=== PATIENT | female | born 1955 | race Caucasian/White ===

== ENCOUNTER 2017-06-10 20:49 | Emergency (ER) | payer BC, OTHER ==
[~2017-06-10] VITALS: Ht 162.6 cm; Wt 94.5 kg
[~2017-06-10 20:49] MED LIST: Z.0.NO CURRENT MEDS
[2017-06-10 21:20] VITALS: BP 161/75; PULSE 73; RESP 18; TEMP 97.8; O2SAT 100
--- NOTE | 2017-06-10 21:37 | PD ---
HPI Chief Complaint: Left knee injury Time Seen by Provider: 21:33 Travel History International Travel<30 days: No Contact w/Intl Traveler<30days: No History of Present Illness HPI 61-year-old female patient with history of left knee meniscus tear diagnosed 2 weeks ago via MRI with Dr. Elizabeth, presents to the ER today because she states that she was walking at the [employer] today and felt and heard a sudden pop in her left knee, followed by severe pain which she states is a 10 out of 10 currently, hurts with any movement. She denies any other issues or injuries. She is unable to put weight on the left knee due to severe pain. Modifying Factors: None Associated Signs & Symptoms: Left knee injury Risk Factors: Left knee meniscus PFSH Past Medical History Heart Rhythm Problems: No Cardiac Catheterization: No Cardiovascular Problems: Yes (x7 years ago, flutters) High Cholesterol: No Congestive Heart Failure: No Diabetes: No Menopausal: Yes Past Surgical History Section: Yes Cholecystectomy: Yes Coronary Artery Bypass Graft: No Gynecologic Surgery: Yes (INFERTILITY SURGERY) Tonsillectomy: Yes Social History Alcohol Use: No Tobacco Use: No Allergies-Medications (Allergen,Severity, Reaction): Coded Allergies: latex (Unverified Allergy, Severe, Respiratory Failure, 06/10/17) CODED ON TABLE penicillin G (Unverified Allergy, Intermediate, Hives, 06/10/17) ALL OVER Reported Meds & Prescriptions Reported Meds & Active Scripts Active Tramadol (Tramadol HCl) 50 Mg Tab 50 Mg PO Q6H PRN Ibuprofen 600 Mg Tab 600 Mg PO Q6H PRN Reported Mobic (Meloxicam) 7.5 Mg Tab 7.5 Mg PO DAILY Review of Systems Except as stated in HPI: all other systems reviewed are Neg Physical Exam Narrative GENERAL: Well-nourished, well-developed middle-age female patient in moderate distress, crying. Awake and oriented 3. SKIN: Focused skin assessment warm/dry. HEAD: Normocephalic. EYES: No scleral icterus. No injection or drainage. NECK: Supple, trachea midline. No JVD or lymphadenopathy. CARDIOVASCULAR: Regular rate and rhythm without murmurs, gallops, or rubs. RESPIRATORY: Breath sounds equal bilaterally. No accessory muscle use. GASTROINTESTINAL: Abdomen soft, non-tender, nondistended. MUSCULOSKELETAL: No cyanosis, or edema. EXTREMITIES: No clubbing, cyanosis, or edema. Left knee notable for effusion, fairly tender to palpation at the joint line, much decreased range of motion secondary to severe pain. BACK: Nontender without obvious deformity. No CVA tenderness. Data Data Last Documented VS Vital Signs Date Time Temp Pulse Resp B/P (MAP) Pulse Ox O2 Delivery O2 Flow Rate FiO2 06/10/17 21:20 97.8 73 18 161/75 (103) 100 Orders Orders Ketorolac Inj (Toradol Inj) (06/10/17 21:45) Knee, Complete (4vws) (06/10/17 21:34) Acetamin-Hydrocod 325-5 Mg ([place] 5-325 (06/10/17 22:45) Splint Or Brace Apply/Monitor (06/10/17 22:39) Crutches (06/10/17 22:39) MDM Medical Decision Making Medical Screen Exam Complete: Yes Emergency Medical Condition: Yes Medical Record Reviewed: Yes Differential Diagnosis Left knee strain versus acute fractures versus dislocations versus meniscal tear Narrative Course X-rays not show any signs of acute fractures or dislocations. However, considering her history, meniscal injury would be a possibility here. At this point, my plan would be to place her in a knee immobilizer, nonweightbearing on the left side, crutches, ice, elevate, and have her follow-up with orthopedics doctor this coming week. Return for any worsening in pain or new issues as needed. The plan has been discussed with her and she states understanding. Diagnosis Primary Impression: Left knee injury Med/Other Pt SpecificInfo: Prescription(s) given Scripts Tramadol (Tramadol) 50 Mg Tab 50 MG PO Q6H Y for PAIN, #10 TAB 0 Refills Prov: Sergio Morales MD 06/10/17 Ibuprofen (Ibuprofen) 600 Mg Tab 600 MG PO Q6H Y for Pain/Inflammation, #20 TAB 0 Refills Prov: Sergio Morales MD 06/10/17 Disposition: 01 DISCHARGE HOME Condition: Stable Sergio Morales MD Jun 10, 2017 21:37
[2017-06-10] MEDS ORDERED: KETOROLAC TROMETHAMINE 60 MG/2 ML (IM) VIAL IM ONE (21:45)
[2017-06-10] MEDS ORDERED: MOBI7.5T PO (21:47)
[2017-06-10] MEDS ORDERED: TRAM50TA PO (22:41)
[2017-06-10] MEDS ORDERED: IBUP-232 PO (22:41)
[2017-06-10] MEDS ORDERED: ACETAMINOPHEN/HYDROcodone 325 MG/5 MG TAB PO ONE (22:45)
--- NOTE | 2017-06-10 23:02 | RADRPT ---
EXAM DATE/TIME: 06/10/2017 21:53 [facility] COMPARISON: No previous studies available for comparison. INDICATIONS : Left knee pain post walking and feeling a pop. MEDICAL HISTORY : None. SURGICAL HISTORY : None. ENCOUNTER: Initial ACUITY: 1 day PAIN SCORE: 10/10 LOCATION: Left knee FINDINGS: Four view examination of the left knee demonstrates no evidence of fracture or dislocation. Bony min eralization is normal. The articular surfaces are intact. The suprapatellar soft tissues have a nor mal configuration. CONCLUSION: No acute disease. Rojas Garsia MD on June 10, 2017 at 23:00 Board Certified Radiologist. This report was verified electronically.
[2017-06-10 23:19] VITALS: RESP 18
== END 2017-06-10 23:18 | disposition home or self-care (01) ==
LOC: PHEFT 20:49
DX: S89.92XA Unspecified injury of left lower leg, initial encounter (principal); Y93.01 Activity, walking, marching and hiking
CPT/HCPCS: 73564; 96372; 99283; E0113; J1885; L1830